=== PATIENT | female | born 1930 | race Hispanic/Latino ===

== ENCOUNTER 2017-11-13 07:28 | Emergency (ER) | payer MEDICARE ==
[2017-11-13 07:29] VITALS: BMI 26.7
[2017-11-13] MEDS ORDERED: Absorbable Gelatin Sponge Size 12-7 ONE (07:40)
[2017-11-13 07:42] VITALS: BP 121/68; PULSE 78; RESP 18; TEMP 97.9; O2SAT 99
--- NOTE | 2017-11-13 07:43 | ED PDOC ---
Arrival/HPI - General Chief Complaint: Abnormal Skin Integrity Time Seen by Provider: 11/13/17 07:30 Historian: Patient - History of Present Illness Narrative History of Present Illness (Text): 11/13/17 07:41 Patient is an 87 yo female who presents to the ED after injuring her right second finger at 11 pm last night. States she was "moving a dresser and it got caught against something". She reports that she has cut to finger that has been oozing blood all night. Denies any numbness or tingling or other injury. Denies wrist pain. Denies foreign body sensation. Reports pain to distal second finger. Past Medical History - Infectious Disease Hx of Infectious Diseases: None - Reproductive Menopause: Yes - Cardiac Hx Hypertension: Yes Other/Comment: Heart problem - Pulmonary Hx Respiratory Disorders: No - Neurological Hx Paralysis: No - Hematological/Oncological Hx Blood Transfusions: No Hx Blood Transfusion Reaction: No - Musculoskeletal/Rheumatological Hx Musculoskeletal Disorders: Yes Hx Back Pain: Yes - Psychiatric Hx Emotional Abuse: No Hx Physical Abuse: No Hx Substance Use: No - Anesthesia Hx Anesthesia Reactions: No Hx Malignant Hyperthermia: No - Suicidal Assessment Feels Threatened In Home Enviroment: No Family/Social History Family/Social History: Unknown Family HX Smoking Status: Never Smoked Hx Alcohol Use: No Hx Substance Use: No Allergies/Home Meds Allergies/Adverse Reactions: Allergies clopidogrel [From Plavix] Allergy (Verified 11/13/17 07:39) RASH Home Medications: Home Meds Medication Instructions Recorded Confirmed Aspirin [Ecotrin] 81 mg PO DAILY 11/25/12 11/13/17 Simvastatin [Zocor] 20 mg PO DAILY 11/13/17 11/13/17 Valsartan [Diovan] 80 mg PO DAILY 11/13/17 11/13/17 hydroCHLOROthiazide [Hydrodiuril] 25 mg PO DAILY 11/13/17 11/13/17 Review of Systems - Review of Systems Constitutional: absent: Fevers Cardiovascular: absent: Chest Pain Skin: Laceration. absent: Rash, Ulcer, Cellulitis Neurological: absent: Focal Weakness Physical Exam Vital Signs Reviewed: Yes Vital Signs Temp Pulse Resp BP Pulse Ox 11/13/17 07:29 97.9 F 78 18 121/68 99 Temperature: Afebrile Appearance: Positive for: Well-Appearing, Non-Toxic, Comfortable Mental Status: Positive for: Alert and Oriented X 3 - Systems Exam Head: Present: Atraumatic Neck: Present: Normal Range of Motion Respiratory/Chest: No: Respiratory Distress Cardiovascular: Present: Regular Rate and Rhythm Upper Extremity: Present: Normal ROM, NORMAL PULSES, Neurovascularly Intact, Norm 2-Pt Discrimination, Other (superficial laceration to right distal second finger, does not involve joint, full flexion and extension at PIP/DIP and mcp joint, no wrist pain, tender to palpation, no foreign body visualized). No: Deformity Neurological: Present: Motor Func Grossly Intact, Normal Sensory Function Skin: Present: Laceration (superficial 3 mm laceration to right distal second finger) Psychiatric: Present: Alert Medical Decision Making ED Course and Treatment: 11/13/17 07:54 Patient with superficial laceration with very minimal bleeding noted, "oozing". She is cv stable currently with no chest pain or sob. Will obtain xray to eval for radioopque FB given persistent bleeding, although none noted on visual inspection and palpation. Wound was cleansed with normal saline. I applied gelfoam there is very minimal bleeding noted. Band aid applied. Bleeding controlled. Wound care instructions given. 11/13/17 08:16 xray preliminary reading, no foreign body, no acute fracture - RAD Interpretation Radiology Orders: 11/13/17 07:46 HAND RIGHT 2ND DIGIT (FINGER) [RAD] Stat Disposition/Present on Arrival - Present on Arrival Any Indicators Present on Arrival: No History of DVT/PE: No History of Uncontrolled Diabetes: No Urinary Catheter: No History of Decub. Ulcer: No History Surgical Site Infection Following: None - Disposition Have Diagnosis and Disposition been Completed?: Yes Diagnosis: Finger laceration Disposition: HOME/ ROUTINE Disposition Time: 08:00 Patient Plan: Discharge Patient Problems: Current Active Problems Problem Status Onset Finger laceration Acute Condition: GOOD Discharge Instructions (ExitCare): Wound Care (DC) Additional Instructions: For any redness, fever, swelling, pain, return of bleeding, or any new symptoms get rechecked. You may remove band aid after 24 hours. Reapply bandaid for any further bleeding. Forms: [employer] (Croatian)
--- NOTE | 2017-11-13 09:48 | RAD ---
PROCEDURE: Right Index finger radiographs. HISTORY: Crush injury COMPARISON: None. TECHNIQUE: AP radiograph of the right hand, as well as spot oblique and lateral images of index finger were obtained. FINDINGS: RIGHT INDEX FINGER: Normal right index finger, without fracture or focal lesion. Remainder of the right hand (as seen on the AP view) grossly intact. JOINTS: Normal. SOFT TISSUES: Soft tissue swelling distal phalanx region. OTHER FINDINGS: None. IMPRESSION: Soft tissue swelling without acute articular or osseous abnormality.
== END 2017-11-13 08:23 | disposition home or self-care (01) ==
LOC: ED 07:28
DX: S61.210A Laceration without foreign body of right index finger without damage to nail, initial encounter (principal); W45.8XXA Other foreign body or object entering through skin, initial encounter; Y93.E9 Activity, other interior property and clothing maintenance; Y92.008 Other place in unspecified non-institutional (private) residence as the place of occurrence of the external cause

== ENCOUNTER 2018-07-21 15:50 | Emergency (ER) | payer MEDICARE ==
[2018-07-21 15:50] VITALS: BMI 26.7
[2018-07-21] MEDS ORDERED: Lidocaine 1% Inj (20ml) IJ STA (16:07)
[2018-07-21] MEDS ORDERED: TDAP Vaccine 0.5 mL Syr IM ONE (16:07)
--- NOTE | 2018-07-21 16:07 | ED PDOC ---
Arrival/HPI - General Chief Complaint: Abnormal Skin Integrity Time Seen by Provider: 07/21/18 16:01 Historian: Patient - History of Present Illness Narrative History of Present Illness (Text): 07/21/18 16:07 88 year old female, currently on daily Aspirin, with past medical history of hypertension, presents to the ED for evaluation of laceration to 1st digit of left hand, sustained prior to arrival. Patient states she was opening a can of soup when the metal lid cut her 1st digit of left hand. Patient denies any presence of glass. Patient noticed immediate bleeding and was unable to control with pressure, prompting her to present to the ED. Patient is unable to recall her last tetanus shot. Patient denies any other associated medical complaints. Patient denies any fever, chills, nausea, vomiting, diarrhea, abdominal pain, chest pain, SOB, or any other complaints. Time/Duration: Prior to Arrival Symptom Onset: Sudden Symptom Course: Unchanged Activities at Onset: Light Context: Home Past Medical History - Provider Review Nursing Documentation Reviewed: Yes - Infectious Disease Hx of Infectious Diseases: None - Cardiac Hx Hypertension: Yes Other/Comment: Heart problem - Pulmonary Hx Respiratory Disorders: No - Neurological Hx Paralysis: No - Hematological/Oncological Hx Blood Transfusions: No Hx Blood Transfusion Reaction: No - Musculoskeletal/Rheumatological Hx Musculoskeletal Disorders: Yes Hx Back Pain: Yes - Psychiatric Hx Emotional Abuse: No Hx Physical Abuse: No Hx Substance Use: No - Anesthesia Hx Anesthesia: Yes Hx Anesthesia Reactions: No Hx Malignant Hyperthermia: No - Suicidal Assessment Feels Threatened In Home Enviroment: No Family/Social History - Physician Review Nursing Documentation Reviewed: Yes Family/Social History: Unknown Family HX Smoking Status: Never Smoked Hx Alcohol Use: No Hx Substance Use: No Allergies/Home Meds Allergies/Adverse Reactions: Allergies clopidogrel [From Plavix] Allergy (Verified 11/13/17 07:39) RASH Home Medications: Home Meds Medication Instructions Recorded Confirmed RX: Aspirin [Ecotrin] 81 mg PO DAILY 11/25/12 11/13/17 RX: Simvastatin [Zocor] 20 mg PO DAILY 11/13/17 11/13/17 RX: hydroCHLOROthiazide 25 mg PO DAILY 11/13/17 11/13/17 [Hydrodiuril] Valsartan [Diovan] 80 mg PO DAILY 11/13/17 11/13/17 Review of Systems - Review of Systems Constitutional: absent: Fevers Respiratory: absent: SOB, Cough Cardiovascular: absent: Chest Pain, ALBERT Gastrointestinal: absent: Abdominal Pain, Diarrhea, Nausea, Vomiting Genitourinary Female: absent: Urine Output Changes, Other Musculoskeletal: absent: Back Pain Skin: Laceration (1st digit of left hand) Neurological: absent: Headache, Dizziness Psychiatric: absent: Anxiety Physical Exam Vital Signs Reviewed: Yes Temperature: Afebrile Blood Pressure: Normal Pulse: Regular Respiratory Rate: Normal Appearance: Positive for: Well-Appearing, Non-Toxic, Comfortable Mental Status: Positive for: Alert and Oriented X 3 - Systems Exam Head: Present: Normocephalic Pupils: Present: PERRL Neck: Present: Normal Range of Motion Upper Extremity: Present: Normal ROM, Neurovascularly Intact, Other (1cm laceration on dorsum of L 1st digit, no active bleeding). No: Cyanosis, Edema Lower Extremity: Present: Normal Inspection. No: Edema Neurological: Present: GCS=15, Speech Normal Skin: Present: Warm, Dry, Normal Color. No: Rashes Psychiatric: Present: Alert, Oriented x 3, Normal Insight, Normal Concentration Medical Decision Making ED Course and Treatment: 07/21/18 16:07 Impression: 88 year old female presents to the ED for evaluation of left hand 1st digit laceration. Plan: -- TDAP -- Lidocaine, suture Progress Notes: 07/21/18 16:52 Laceration repaired and tetanus updated - Scribe Statement The provider has reviewed the documentation as recorded by the Scribe Meredith Herndon. All medical record entries made by the Scribe were at my direction and personally dictated by me. I have reviewed the chart and agree that the record accurately reflects my personal performance of the history, physical exam, medical decision making, and the department course for this patient. I have also personally directed, reviewed, and agree with the discharge instructions and disposition. Disposition/Present on Arrival - Present on Arrival Any Indicators Present on Arrival: No History of DVT/PE: No History of Uncontrolled Diabetes: No Urinary Catheter: No History of Decub. Ulcer: No History Surgical Site Infection Following: None - Disposition Have Diagnosis and Disposition been Completed?: Yes Diagnosis: Laceration Disposition: HOME/ ROUTINE Disposition Time: 16:53 Patient Plan: Discharge Patient Problems: Current Active Problems Problem Status Onset Laceration Acute Condition: GOOD Discharge Instructions (ExitCare): Laceration Repair With Stitches (DC) Additional Instructions: Follow-up with PMD within 2 days. Return to Ed if condition worsens. Keep laceration clean and dry. Forms: [employer] (Uzbek) Laceration - Laceration Repair No standard instances Wound Length (In cm): 18 in Description Of Wound: Linear Wound Cleansed With: Sterile Saline Anesthesia: Lidocaine 1% Wound Examination: Irrigated With Saline Wound Closure: Suture (5 vicryl) Suture Technique And Material Used: Interrupted, Vicryl Wound Complexity: Simple Wound Complexity: Simple
[2018-07-21 16:14] VITALS: TEMP 97.9
[2018-07-21 19:16] VITALS: BP 110/59; PULSE 73; RESP 18; O2SAT 98
== END 2018-07-21 20:16 | disposition home or self-care (01) ==
LOC: ED 15:50
DX: S61.012A Laceration without foreign body of left thumb without damage to nail, initial encounter (principal); W26.8XXA Contact with other sharp object(s), not elsewhere classified, initial encounter; Y92.9 Unspecified place or not applicable; Z23 Encounter for immunization

== ENCOUNTER 2018-07-26 14:26 | Emergency (ER) | payer MEDICARE ==
[2018-07-26 14:28] VITALS: BMI 26.7
[2018-07-26 14:43] VITALS: BP 129/83; PULSE 72; RESP 18; TEMP 98; O2SAT 98
--- NOTE | 2018-07-26 14:47 | ED PDOC ---
Arrival/HPI - General Chief Complaint: Wound Check Time Seen by Provider: 07/26/18 14:35 Historian: Patient - History of Present Illness Narrative History of Present Illness (Text): 07/26/18 14:59 88 year old female whose past medical history includes hypertension, presents to the Emergency department for wound check and suture removal. Patient was seen in this Emergency department 5 days ago for laceration of the dorsum of the left thumb. Patient was unsure if sutures had to be removed. Patient denies any drainage, no significant pain or swelling of the wound. Patient has not washed her hand as she thought she had to keep it dry. She denies any fevers, chills, headache, dizziness, chest pain, shortness of breath, dyspnea on exertion, cough, abdominal pain, nausea, vomiting, diarrhea, back pain, neck pain, or any other complaint. Time/Duration: < week Symptom Course: Unchanged Activities at Onset: Light Context: Home Past Medical History - Provider Review Nursing Documentation Reviewed: Yes - Infectious Disease Hx of Infectious Diseases: None - Cardiac Hx Hypertension: Yes Other/Comment: Heart problem - Pulmonary Hx Respiratory Disorders: No - Neurological Hx Paralysis: No - Hematological/Oncological Hx Blood Transfusions: No Hx Blood Transfusion Reaction: No - Musculoskeletal/Rheumatological Hx Musculoskeletal Disorders: Yes Hx Back Pain: Yes - Psychiatric Hx Emotional Abuse: No Hx Physical Abuse: No Hx Substance Use: No - Anesthesia Hx Anesthesia: Yes Hx Anesthesia Reactions: No Hx Malignant Hyperthermia: No - Suicidal Assessment Feels Threatened In Home Enviroment: No Family/Social History - Physician Review Nursing Documentation Reviewed: Yes Family/Social History: No Known Family HX Smoking Status: Never Smoked Hx Alcohol Use: No Hx Substance Use: No Allergies/Home Meds Allergies/Adverse Reactions: Allergies clopidogrel [From Plavix] Allergy (Verified 07/26/18 14:43) RASH Home Medications: Home Meds Medication Instructions Recorded Confirmed RX: Aspirin [Ecotrin] 81 mg PO DAILY 11/25/12 07/26/18 RX: Simvastatin [Zocor] 20 mg PO DAILY 11/13/17 07/26/18 RX: hydroCHLOROthiazide 25 mg PO DAILY 11/13/17 07/26/18 [Hydrodiuril] Valsartan [Diovan] 80 mg PO DAILY 11/13/17 07/26/18 Review of Systems - Physician Review All systems were reviewed & negative as marked: Yes - Review of Systems Constitutional: absent: Fevers Respiratory: absent: SOB, Cough Cardiovascular: absent: Chest Pain Gastrointestinal: absent: Diarrhea, Nausea, Vomiting Musculoskeletal: absent: Back Pain, Neck Pain Skin: Laceration (laceration of the dorsum of the left thumb) Neurological: absent: Headache, Dizziness Physical Exam - Physical Exam Narrative Physical Exam (Text): 07/26/18 15:01 Gen: VS reviewed, alert, well developed, well nourished, nontoxic, mild distress Eye: EOMI, PERRL Neck: no JVD, supple, no adenopathy Ext: no edema Skin: good color, no rash, no cyanosis Ext: there are multiple sutures over the dorsum of the left thumb. it is difficult to count all of the sutures as some of the sutures are buried within the scab. there is minimal redness surrounding the wound, there is no purulent drainage, no swelling. Psych: responds appropriately to questions, normal affect Neuro: oriented x3, CN2-12 intact grossly, motor intact, sensation intact 07/26/18 18:06 Vital Signs Reviewed: Yes Vital Signs Temp Pulse Resp BP Pulse Ox 07/26/18 14:28 98 F 72 18 129/83 98 Temperature: Afebrile Blood Pressure: Normal Pulse: Regular Respiratory Rate: Normal Appearance: Positive for: Well-Appearing, Non-Toxic, Comfortable Pain Distress: None Mental Status: Positive for: Alert and Oriented X 3 Medical Decision Making ED Course and Treatment: 07/26/18 15:00 Impression: 88 year old female who presents to the emergency department to remove sutures on the left thumb. Plan: -- Reassess and disposition Prior Visits: 07/26/18 15:03 Patient seen for wound check. Sutures do not require removal as they are dissolvable. No s/s of infection at this time. Patient informed that she can clean the wound with soap and water. Patient also understands to return for any s/s of infection. - Scribe Statement The provider has reviewed the documentation as recorded by the Dania Mejia Provider Scribe Attestation: All medical record entries made by the Scribe were at my direction and personally dictated by me. I have reviewed the chart and agree that the record accurately reflects my personal performance of the history, physical exam, medical decision making, and the department course for this patient. I have also personally directed, reviewed, and agree with the discharge instructions and disposition. Disposition/Present on Arrival - Present on Arrival Any Indicators Present on Arrival: No History of DVT/PE: No History of Uncontrolled Diabetes: No Urinary Catheter: No History of Decub. Ulcer: No History Surgical Site Infection Following: None - Disposition Have Diagnosis and Disposition been Completed?: Yes Diagnosis: Laceration of finger Disposition: HOME/ ROUTINE Disposition Time: 14:47 Patient Plan: Discharge Condition: STABLE Discharge Instructions (ExitCare): Laceration Repair With Stitches (DC) Additional Instructions: The sutures do not need to be removed. They will dissolve on their own. Return for any evidence of infection especially increased pain,swelling, or redness of the finger, or pus draining from the wound. DEMOND SANDRA, thank you for letting us take care of you today. Your provider was Dr. Jose Canchola and you were treated for wound check. The emergency medical care you received today was directed at your acute symptoms. If you were prescribed any medication, please fill it and take as directed. It may take several days for your symptoms to resolve. Return to the Emergency Department if your symptoms worsen, do not improve, or if you have any other problems. Please contact your doctor or call one of the physicians/clinics you have been referred to that are listed on the Patient Visit Information form that is included in your discharge packet. Bring any paperwork you were given at discharge with you along with any medications you are taking to your follow up visit. Our treatment cannot replace ongoing medical care by a primary care provi norman outside of the emergency department. Thank you for allowing the [facility] team to be part of your care today. If you had an X-Ray or CT scan: A Radiologist will review the ED reading if any change in treatment is needed we will contact you. If you had a blood, urine, or wound culture: It will take several days for the results, if any change in treatment is needed we will contact you. If you had an STI test: It will take 48 hours for the results. Please call after 1 week if you have not heard back. Referrals: Nito Connor MD [Primary Care Provider] - Follow up with primary Forms: [employer] (Telugu)
== END 2018-07-26 15:01 | disposition home or self-care (01) ==
LOC: ED 14:26
DX: S61.012D Laceration without foreign body of left thumb without damage to nail, subsequent encounter (principal); W26.8XXD Contact with other sharp object(s), not elsewhere classified, subsequent encounter